=== PATIENT | male | born 1940 | race Caucasian/White ===

== ENCOUNTER 2018-04-24 11:47 | Observation (INO) ==
[2018-04-24] MEDS ORDERED: Ondansetron 4 MG/2 ML VIAL IVP ONE (12:55)
[2018-04-24] MEDS ORDERED: 0.9 % Sodium Chloride 1,000 ML IVC ONE (12:55)
[2018-04-24] MEDS ORDERED: Ketorolac 15 MG/ML VIAL IVP ONE (12:56)
[2018-04-24] MEDS ORDERED: Acetaminophen IV 500 MG/50 ML INFUS..BTL IVPB ONE (13:08)
--- NOTE | 2018-04-24 13:19 | Emergency Department Note ---
Disposition Clinical Impression: Weakness, Fever, Influenza A, Pneumonia Disposition: Admitted As Inpatient Condition: Fair General Adult HPI - General Chief complaint: ED Nausea/Vomiting/Diarrhea Stated complaint: Vomitng,Weakness,Abd pain,Body aches Time Seen by Provider: 04/24/18 12:54 Source: family Limitations: altered mental status - History of Present Illness Pain Scale: 0 - Related Data Allergies Allergy/AdvReac Type Severity Reaction Status Date / Time No Known Allergies Allergy Verified 04/24/18 12:45 Past Medical History - Past Medical History Medical history: Reports: hypertension Psychiatric history: Reports: no psych history - Social History Smoking Status: Former smoker Smokeless Tobacco Status: No Drug use: Reports: none Physical Exam - General Limitations: altered mental status General appearance: lethargic Course Vital Signs Temperature 101.8 F H 04/24/18 12:42 Pulse Rate 92 04/24/18 12:42 Respiratory Rate 16 04/24/18 12:42 Blood Pressure 190/94 04/24/18 12:42 O2 Sat by Pulse Oximetry 93 04/24/18 12:42 Temperature 103.1 F H 04/24/18 19:00 Pulse Rate 96 04/24/18 19:00 Respiratory Rate 22 04/24/18 19:00 Blood Pressure 159/79 04/24/18 19:00 O2 Sat by Pulse Oximetry 90 04/24/18 19:00 Oxygen Delivery Oxygen Delivery Room Air Medical Decision Making - Lab Data Result diagrams: 04/24/18 13:20 04/24/18 13:20 Lab Results 04/24/18 04/24/18 04/24/18 Range/Units 13:20 13:20 13:20 WBC 6.1 (4.3-11.1) K/mcL RBC 4.95 (4.19-5.50) M/mcL Hgb 15.9 (12.9-16.9) g/dL Hct 45.1 (37.5-50.1) % MCV 91.1 (83.0-100.0) fL MCH 32.1 (28.0-33.3) pg MCHC 35.3 (31.6-35.5) g/dL RDW 13.3 (11.5-14.5) % Plt Count 126 L (140-400) K/mcL MPV 9.1 L (9.4-12.4) fL Immature Gran % 0.3 (0-4) % Seg Neutrophils % 83.1 % Lymphocytes % 5.4 % Monocytes % 10.2 % Eosinophils % 0.8 % Basophils % 0.2 % Neutrophils # 5.0 (1.6-8.9) K/mcL Lymphocytes # 0.3 L (0.6-4.6) K/mcL Monocytes # 0.6 (0.0-1.3) K/mcL Eosinophils # 0.1 (0.0-0.6) K/mcL Basophils # 0.0 (0.0-0.2) K/mcL Sodium 136 (136-145) mEq/L Potassium 4.1 (3.5-5.1) mEq/L Chloride 103 (98-107) mEq/L Carbon Dioxide 25 (23-29) mEq/L BUN 16 (8-23) mg/dL Creatinine 1.09 (0.70-1.30) mg/dL Est GFR ( Amer) > 60 (> 60) Est GFR (Non-Af Amer) > 60 (> 60) BUN/Creatinine Ratio 15 (6-26) Glucose 132 H (70-105) mg/dL Calculated Osmolality 285 (280-300) Lactic Acid 1.3 (0.5-2.2) mmol/L Calcium 9.4 (8.6-10.3) mg/dL Total Bilirubin 0.9 (0.3-1.0) mg/dL Direct Bilirubin 0.2 (0.0-0.2) mg/dL Indirect Bilirubin 0.7 (0.0-1.2) mg/dL AST 24 (13-39) Units/L ALT 21 (7-52) Units/L Alkaline Phosphatase 51 (34-104) Units/L Serum Total Protein 7.5 (6.4-8.9) g/dL Albumin 4.5 (3.5-5.7) g/dL Globulin 3.0 (2.4-3.5) g/dL Albumin/Globulin Ratio 1.5 (1.1-2.2) Urine Color (Yellow) Urine Clarity (Clear) Urine pH (5.0-8.0) pH Units Ur Specific [place] (1.010-1.025) Urine Protein (Neg-Trace) mg/dL Urine Glucose (UA) (Normal) mg/dL Urine Ketones (Negative) mg/dL Urine Blood (Negative) Urine Nitrite (Negative) Urine Bilirubin (Negative) Urine Urobilinogen (Normal) mg/dL Ur Leukocyte Esterase (Negative) Urine Microscopic RBC (0-3) per hpf Urine Microscopic WBC (0-3) per hpf Ur Squamous Epith Cells (None-Few) per lpf Urine Bacteria (None-Few) per hpf Hyaline Casts (None-Few) per lpf Ur Culture Indicated? (NO) 04/24/18 Range/Units 14:28 WBC (4.3-11.1) K/mcL RBC (4.19-5.50) M/mcL Hgb (12.9-16.9) g/dL Hct (37.5-50.1) % MCV (83.0-100.0) fL MCH (28.0-33.3) pg MCHC (31.6-35.5) g/dL RDW (11.5-14.5) % Plt Count (140-400) K/mcL MPV (9.4-12.4) fL Immature Gran % (0-4) % Seg Neutrophils % % Lymphocytes % % Monocytes % % Eosinophils % % Basophils % % Neutrophils # (1.6-8.9) K/mcL Lymphocytes # (0.6-4.6) K/mcL Monocytes # (0.0-1.3) K/mcL Eosinophils # (0.0-0.6) K/mcL Basophils # (0.0-0.2) K/mcL Sodium (136-145) mEq/L Potassium (3.5-5.1) mEq/L Chloride (98-107) mEq/L Carbon Dioxide (23-29) mEq/L BUN (8-23) mg/dL Creatinine (0.70-1.30) mg/dL Est GFR ( Amer) (> 60) Est GFR (Non-Af Amer) (> 60) BUN/Creatinine Ratio (6-26) Glucose (70-105) mg/dL Calculated Osmolality (280-300) Lactic Acid (0.5-2.2) mmol/L Calcium (8.6-10.3) mg/dL Total Bilirubin (0.3-1.0) mg/dL Direct Bilirubin (0.0-0.2) mg/dL Indirect Bilirubin (0.0-1.2) mg/dL AST (13-39) Units/L ALT (7-52) Units/L Alkaline Phosphatase (34-104) Units/L Serum Total Protein (6.4-8.9) g/dL Albumin (3.5-5.7) g/dL Globulin (2.4-3.5) g/dL Albumin/Globulin Ratio (1.1-2.2) Urine Color Yellow (Yellow) Urine Clarity Clear (Clear) Urine pH 6.0 (5.0-8.0) pH Units Ur Specific [place] 1.016 (1.010-1.025) Urine Protein 30 H (Neg-Trace) mg/dL Urine Glucose (UA) Normal (Normal) mg/dL Urine Ketones Negative (Negative) mg/dL Urine Blood Trace H (Negative) Urine Nitrite Negative (Negative) Urine Bilirubin Negative (Negative) Urine Urobilinogen Normal (Normal) mg/dL Ur Leukocyte Esterase Negative (Negative) Urine Microscopic RBC 0-3 (0-3) per hpf Urine Microscopic WBC 0-3 (0-3) per hpf Ur Squamous Epith Cells Moderate H (None-Few) per lpf Urine Bacteria None Seen (None-Few) per hpf Hyaline Casts None Seen (None-Few) per lpf Ur Culture Indicated? NO (NO) Attestation Statement - Attestation Attestation: I examined this patient and my medical decision-making was reviewed with the Resident Physician. I agree with the documented findings, disposition and treatment plan as described except to the extent set forth below. Patient to the ED with a chief complaint of weakness. Fever. Cough. states she has been ill since last night. Had a "couple weeks ago but got over that. Today he has been so weak he could not get out of bed. states is usually out riding his tractor and taking care of his horses, but he was too weak to get up this morning. This is very out of character for him. He was also noted to have one episode of vomiting and urinary incontinence in the waiting room. He denies headache. He denies neck pain. states that he is not confused. On examination he is awake and alert. Lungs diminished but clear. Satting 94% on room air. He is febrile 101. Plan. Septic workup. Admission. Patient with infiltrate on chest x-ray. IV antibodies given. Meets Chest X-Ray 04/24/18 14:28 IMPRESSION: Bilateral perihilar and lower lobe airspace opacities suggesting a viral or atypical bronchopneumonia. D/ / Nicko Galindo MD / Nicko Galindo MD Interpreting Provider: Nicko Galindo MD sepsis criteria. Admitted.
--- NOTE | 2018-04-24 13:35 | Emergency Department Note ---
Disposition Clinical Impression: Weakness, Influenza A Fever Qualifiers: Fever type: unspecified Qualified Code(s): R50.9 - Fever, unspecified Pneumonia Qualifiers: Aspiration pneumonia type: unspecified Laterality: unspecified laterality Lung location: unspecified part of lung Disposition: Admitted As Inpatient Condition: Fair Time of Disposition: 15:28 General Adult HPI - General Chief complaint: ED Nausea/Vomiting/Diarrhea Stated complaint: Vomitng,Weakness,Abd pain,Body aches Time Seen by Provider: 04/24/18 12:54 Source: family Limitations: altered mental status Nursing Notes Reviewed: Yes Vital Signs Reviewed: Yes - History of Present Illness HPI Narrative: 77yo male presents from home for evaluation of this and cough. Approximate 2 weeks ago, patient had cold-like symptoms that resolved. 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 Yesterday morning, he began having cough with generalized weakness. Both of these symptoms progressed such that he is now having a productive cough with brown sputum, posttussive emesis 1, generalized weakness such that he is unable to st and under his own power. On ED intake triage vitals, he was incontinent of urine once. He now is warm to the touch. PMH: Peripheral neuropathy. Hypertension on one low-dose antihypertensive. No history of CAD, ACS, diabetes, kidney disease, COPD, CVA or TIA Habits: Remote history of cigarette smoking; quit 30 years ago. No EtOH or illicit. She did receive his seasonal influenza vaccine ROS: Positive: As above Negative: Fever at home, vomiting at home, diarrhea, constipation, abdominal pain, trauma, focal numbness or tingling or weakness, chest pain, palpitations, unusual back pain, dysuria Pain Scale: 0 - Related Data Allergies Allergy/AdvReac Type Severity Reaction Status Date / Time No Known Allergies Allergy Verified 04/24/18 12:45 All systems ED: reviewed and negative except as stated. Review of Systems: As Per HPI Past Medical History - Past Medical History Attestation: Yes The following information was validated with the patient. Source: patient Medical history: Reports: hypertension Psychiatric history: Reports: no psych history - Social History Smoking Status: Former smoker Smokeless Tobacco Status: No Drug use: Reports: none Physical Exam Vital Signs Reviewed General: Patient is somnolent, warm to the touch. He opens eyes to voice, is alert, oriented to self, location, situation. Head: atraumatic, normocephalic Eye: normal appearance, PERRL, EOMI, no scleral icterus, bilateral scleral injection. No conjunctival injection. ENT: mucous membranes moist, normal external ear exam. No some mandibular or cervical lymph adenopathy. Posterior pharynx erythematous without tonsillar swelling, no exudates. Neck: normal inspection, trachea midline, full ROM Chest: normal inspection, symmetric chest rise Respiratory: Good respiratory effort. Bilateral breath sounds are clear without wheezing, crackles, or rhonchi. No stridor. Cardiovascular: Regular rate and rhythm. No clicks, rubs, gallops, or murmors. Normal heart sounds. Abdomen: Bowel sounds present normoactive. Abdomen is soft, nondistended, and nontender. No guarding or rebound. Musculoskeletal: Spontaneously moving all extremities. Skin: warm, dry, intact. Neuro: GCS 15. No focal neurologic deficits observed; sensation to light touch intact and equal bilateral upper and lower extremities, strength 5/5 and equal bilateral upper and lower extremities, no pronator drift. Psych: Patient's affect is appropriate for situation. - General Limitations: altered mental status General appearance: lethargic Course Course Narrative: EKG dated 04/25/19 1913:11 interpreted as sinus rhythm with rate of 96. MT 157, QRS 140, QTC 428. Normal axis. Right bundle branch block. Nonspecific ST-T changes. Compared to previous dated 08/28/2011 showing no acute ischemic changes or comparison. Rapid influenza positive for influenza A. Given patient is a high risk group, Tamiflu 75 mg now. Chest x-ray per renal injury shows a viral versus atypical bronchial pneumonia. Viral more likely given the patient's positive flu however, given he is flu positive will empirically cover for community-acquired pneumonia. Serum hematology is unremarkable. Serum chemistries unremarkable. I discussed the above the patient. He is agreeable to admission for continued evaluation monitoring. I discussed the above with the aberrant hospitalist, Dr. Kaur, who agrees to accept patient for continued evaluation monitoring of his influenza and potential pneumonia as well as his weakness. Chest X-Ray 04/24/18 14:28 IMPRESSION: Bilateral perihilar and lower lobe airspace opacities suggesting a viral or atypical bronchopneumonia. D/ / Nicko Galindo MD / Nicko Galindo MD Interpreting Provider: Nicko Galindo MD Vital Signs Temperature 101.8 F H 04/24/18 12:42 Pulse Rate 92 04/24/18 12:42 Respiratory Rate 16 04/24/18 12:42 Blood Pressure 190/94 04/24/18 12:42 O2 Sat by Pulse Oximetry 93 04/24/18 12:42 Temperature 101.8 F H 04/24/18 13:04 Pulse Rate 92 04/24/18 13:04 Respiratory Rate 16 04/24/18 13:04 Blood Pressure 190/94 04/24/18 13:04 O2 Sat by Pulse Oximetry 93 04/24/18 13:04 Oxygen Delivery Oxygen Delivery Room Air Medical Decision Making - Lab Data Result diagrams: 04/24/18 13:20 04/24/18 13:20 Lab Results 04/24/18 04/24/18 04/24/18 Range/Units 13:20 13:20 13:20 WBC 6.1 (4.3-11.1) K/mcL RBC 4.95 (4.19-5.50) M/mcL Hgb 15.9 (12.9-16.9) g/dL Hct 45.1 (37.5-50.1) % MCV 91.1 (83.0-100.0) fL MCH 32.1 (28.0-33.3) pg MCHC 35.3 (31.6-35.5) g/dL RDW 13.3 (11.5-14.5) % Plt Count 126 L (140-400) K/mcL MPV 9.1 L (9.4-12.4) fL Immature Gran % 0.3 (0-4) % Seg Neutrophils % 83.1 % Lymphocytes % 5.4 % Monocytes % 10.2 % Eosinophils % 0.8 % Basophils % 0.2 % Neutrophils # 5.0 (1.6-8.9) K/mcL Lymphocytes # 0.3 L (0.6-4.6) K/mcL Monocytes # 0.6 (0.0-1.3) K/mcL Eosinophils # 0.1 (0.0-0.6) K/mcL Basophils # 0.0 (0.0-0.2) K/mcL Sodium 136 (136-145) mEq/L Potassium 4.1 (3.5-5.1) mEq/L Chloride 103 (98-107) mEq/L Carbon Dioxide 25 (23-29) mEq/L BUN 16 (8-23) mg/dL Creatinine 1.09 (0.70-1.30) mg/dL Est GFR ( Amer) > 60 (> 60) Est GFR (Non-Af Amer) > 60 (> 60) BUN/Creatinine Ratio 15 (6-26) Glucose 132 H (70-105) mg/dL Calculated Osmolality 285 (280-300) Lactic Acid 1.3 (0.5-2.2) mmol/L Calcium 9.4 (8.6-10.3) mg/dL Total Bilirubin 0.9 (0.3-1.0) mg/dL Direct Bilirubin 0.2 (0.0-0.2) mg/dL Indirect Bilirubin 0.7 (0.0-1.2) mg/dL AST 24 (13-39) Units/L ALT 21 (7-52) Units/L Alkaline Phosphatase 51 (34-104) Units/L Serum Total Protein 7.5 (6.4-8.9) g/dL Albumin 4.5 (3.5-5.7) g/dL Globulin 3.0 (2.4-3.5) g/dL Albumin/Globulin Ratio 1.5 (1.1-2.2)
[2018-04-24 13:49] LABS: Basophils % 0.2 %; Eosinophils # 0.1 K/mcL (0.0-0.6); Eosinophils % 0.8 %; Hematocrit 45.1 % (37.5-50.1); Hemoglobin 15.9 g/dL (12.9-16.9); Immature Granulocytes % 0.3 % (0-4); Lymphocytes # 0.3 K/mcL (0.6-4.6); Lymphocytes % 5.4 %; Mean Corpuscular HGB Conc 35.3 g/dL (31.6-35.5); Mean Corpuscular Hemoglobin 32.1 pg (28.0-33.3); Mean Corpuscular Volume 91.1 fL (83.0-100.0); Mean Platelet Volume 9.1 fL (9.4-12.4); Monocytes # 0.6 K/mcL (0.0-1.3); Monocytes % 10.2 %; Platelet Count 126 K/mcL (140-400); Red Blood Count 4.95 M/mcL (4.19-5.50); Red Cell Distribution Width 13.3 % (11.5-14.5); Segmented Neutrophils % 83.1 %
[2018-04-24 13:55] LABS: Alanine Aminotransferase 21 Units/L (7-52); Albumin 4.5 g/dL (3.5-5.7); Albumin/Globulin Ratio 1.5 (1.1-2.2); Alkaline Phosphatase 51 Units/L (34-104); Aspartate Amino Transferase 24 Units/L (13-39); BUN/Creatinine Ratio 15 (6-26); Bilirubin,Direct 0.2 mg/dL (0.0-0.2); Bilirubin,Indirect 0.7 mg/dL (0.0-1.2); Bilirubin,Total 0.9 mg/dL (0.3-1.0); Blood Urea Nitrogen 16 mg/dL (8-23); Calcium 9.4 mg/dL (8.6-10.3); Carbon Dioxide 25 mEq/L (23-29); Chloride 103 mEq/L (98-107); Glucose 132 mg/dL (70-105); Osmolality,Calculated 285 (280-300); Potassium 4.1 mEq/L (3.5-5.1); Sodium 136 mEq/L (136-145); Total Protein 7.5 g/dL (6.4-8.9); eGFR For Non-African Americans > 60 (> 60)
[2018-04-24 14:53] LABS: Bilirubin,Urine Negative (Negative); Blood,Urine Trace (Negative); Clarity,Urine Clear (Clear); Color,Urine Yellow (Yellow); Glucose,Urine (UA) Normal (Normal); Ketones,Urine Negative (Negative); Leukocyte Esterase,Urine Negative (Negative); Nitrite,Urine Negative (Negative); Protein,Urine 30 mg/dL (Neg-Trace); Specific Gravity,Urine 1.016 (1.010-1.025); Urobilinogen,Urine Normal (Normal)
[2018-04-24 14:58] LABS: Bacteria,Urine None Seen per hpf (None-Few); Hyaline Casts,Urine None Seen per lpf (None-Few); RBC,Urine 0-3 per hpf (0-3); Squamous Epithelial Cell,Urine Moderate per lpf (None-Few); WBC,Urine 0-3 per hpf (0-3)
[2018-04-24] MEDS ORDERED: Azithromycin 500 MG in D5% in Water 250 ML IVPB ONE (15:09)
[2018-04-24] MEDS ORDERED: cefTRIAXone 1,000 MG in Water for inj. (sterile) 20 ML 10 ML IVP ONE (15:09)
[2018-04-24] MEDS ORDERED: Naloxone 0.4 MG/ML INJ IVP PRN (18:41)
[2018-04-24] MEDS ORDERED: 0.9 % Sodium Chloride 1,000 ML IVC SCH (19:00)
[2018-04-24] MEDS ORDERED: Ibuprofen 600 MG TABLET PO ONE (19:34)
[2018-04-24] MEDS ORDERED: Acetaminophen 325 MG TABLET PO ONE (19:34)
[2018-04-24] MEDS ORDERED: Ipratropium/Albuterol Neb 3 ML IH SCH (22:00)
[2018-04-24] MEDS ORDERED: Ipratropium/Albuterol Neb 3 ML IH PRN (22:12)
--- NOTE | 2018-04-24 22:16 | Event Note ---
Date of Encounter: 04/24/18 Time of Encounter: 19:32 Alerted by patient's nurse BOLIVAR Tucker that patient's current temperature was 103.1F w/no antipyretics ordered. Pt. admitted for influenza and PNA. One time dose of 600 mg ibuprofen and one time dose of Tylenol 650 mg ordered. Nurse instructed to give ibuprofen first then the Tylenol for second dose. Nurse reported that patient was populating is a sepsis risk due to HR 96 and current temperature of 103.1. Ibuprofen was given. Lactic acid 1.3. Nurse instructed to order telemetry for the patient due to sepsis. Nurse also instructed to continue monitoring this pt. closely and keep me informed regularly d/t high risk sepsis status.
--- NOTE | 2018-04-24 23:29 | Electrocardiograph Report ---
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
--- NOTE | 2018-04-25 05:46 | Internal Med History&Physical ---
Date of Encounter: 04/24/18 Time of Encounter: 19:00 Internal Medicine - H&P: HPI Chief complaint: Severe cough Admitted From: Home Plans for Post Hospital Care: Home History of present illness: The patient is a 77-year-old male. He developed malaise and progressing coughing but not wheezing yesterday afternoon. Associated with fever and chills. The cough (nonproductive) was bothering him all the night; did not get any sleep. Came to emergency room for evaluation and treatment. He is tested positive for influenza A. PAST MEDICAL HX: Treated for hypertension. Has been diagnosed with peripheral neuropathy (mostly feet) and gout. PAST FAMILY HX: See below PAST SOCIAL HX: He used to smoke in the past. There is no history of alcohol or illicit drug use. REVIEW OF SYSTEMS: All 14 organ systems were reviewed by me with the patient. Positive and pertinent negative findings are listed above. The rest of organ systems is negative. PHYSICAL EXAM: Skin: Free of rash and discoloration. Eyes: Sclera is white. There is no discharge from eyes. ENMT: Oral/pharyngeal mucosa is normal in appearance. There is no discharge from nose or ears. Respiratory: Normal breath sounds with no crackles and wheezes bilaterally. CV: Heart is regular with no gallop or murmur. GI: Abdomen is flat and soft with no palpable mass or visceromegaly. : There is no tenderness in patient's flanks bilaterally. Neuro exam: He has good strength in upper and lower extremities. He has normal eye movements. Psychiatric: He has normal affect. His thought process is appropriate to the situation. ADDITIONAL DATA: CBC shows hemoglobin of 15.9 with a WBC of 6.1 thousand and platelet count of 126,000. BMP is normal. Random glucose is 132. UA shows normal findings. Chest x-ray shows bilateral perihilar and lower lobe airspace opacities suggesting viral or atypical bronchopneumonia. EKG shows normal sinus rhythm with right bundle branch block. The patient is tested positive for influenza A. A/P: Influenza A/possible viral pneumonia. Tamiflu has been started. He is on IV Zithromax/IV Rocephin. I put him on scheduled Tessalon. He will get nebulizer treatments with DuoNeb every 6 hours. Hypertension. We are trying to get info about his home medications. Currently, he does not need any antihypertensives. His other problems are mentioned in past medical history. Past Med Surg Social Fam HX - Past Medical History Medical history: hypertension Additional medical history: neuropathy, gout Psychiatric history: no psych history - Social History Smoking Status: Former smoker Smokeless Tobacco Status: No Drug use: none - Family History Mother History Unknown: Yes Living Status: Cause of : car accident Father History Unknown: Yes Living Status: Cause of : alcoholic complications Internal Medicine - H&P: Meds Allergy/AdvReac Type Severity Reaction Status Date / Time No Known Allergies Allergy Verified 04/24/18 12:45 - Constitutional Vitals: Temp Pulse Resp BP Pulse Ox 98.2 F 67 16 120/7 93 04/25/18 04:02 04/25/18 04:02 04/25/18 04:02 04/25/18 04:02 04/25/18 04:02 General appearance: Present: A&O X 3, pleasant, answers questions appropriately Exam: xx Internal Med - H&P Results - Labs CBC & Chem 7: 04/24/18 13:20 04/24/18 13:20 Labs: Short CBC 04/24/18 Range/Units 13:20 WBC 6.1 (4.3-11.1) K/mcL Hgb 15.9 (12.9-16.9) g/dL Hct 45.1 (37.5-50.1) % Plt Count 126 L (140-400) K/mcL Neutrophils # 5.0 (1.6-8.9) K/mcL BMP 04/24/18 13:20 Sodium 136 Potassium 4.1 Chloride 103 Carbon Dioxide 25 BUN 16 Creatinine 1.09 Glucose 132 H Calcium 9.4 Liver Function 04/24/18 Range/Units 13:20 Total Bilirubin 0.9 (0.3-1.0) mg/dL Direct Bilirubin 0.2 (0.0-0.2) mg/dL AST 24 (13-39) Units/L ALT 21 (7-52) Units/L Alkaline Phosphatase 51 (34-104) Units/L Albumin 4.5 (3.5-5.7) g/dL Urine 04/24/18 Range/Units 14:28 Urine Color Yellow (Yellow) Urine Clarity Clear (Clear) Urine pH 6.0 (5.0-8.0) pH Units Ur Specific [place] 1.016 (1.010-1.025) Urine Protein 30 H (Neg-Trace) mg/dL Urine Glucose (UA) Normal (Normal) mg/dL - Impressions ITS Impressions Chest X-Ray 04/24/18 14:28 IMPRESSION: Bilateral perihilar and lower lobe airspace opacities suggesting a viral or atypical bronchopneumonia. D/ / Nicko Galindo MD / Nicko Galindo MD Interpreting Provider: Nicko Galindo MD - Assessment and Plan (1) Influenza A Current Visit: Yes Status: Acute (2) Viral pneumonia Current Visit: Yes Status: Acute (3) HTN (hypertension) Current Visit: Yes Status: Acute Qualifiers: Hypertension type: essential hypertension Qualified Code(s): I10 - Essential (primary) hypertension - Time Spent With Patient Total time spent is greater than 50% in coordination of care (as documented) at patient's floor/unit and/or counseling patient: 25 - 35 minutes
[2018-04-25] MEDS ORDERED: Acetaminophen 325 MG TABLET PO PRN (08:26)
[2018-04-25] MEDS: Benzonatate 100 MG CAPSULE PO PRN ×2 (08:38→14:14)
[2018-04-25] MEDS: Ipratropium/Albuterol Neb 3 ML IH SCH ×3 (10:23→22:38)
[2018-04-25] MEDS: Gabapentin 400 MG CAPSULE PO SCH ×3 (14:05→21:25)
[2018-04-25] MEDS: cefTRIAXone 1,000 MG in Water for inj. (sterile) 20 ML 10 ML IVP SCH (14:05)
[2018-04-25] MEDS: Aspirin Enteric Coated 81 MG Tablet PO SCH (14:05)
[2018-04-25] MEDS: Azithromycin 500 MG in D5% in Water 250 ML IVPB SCH (14:14)
--- NOTE | 2018-04-25 14:28 | Internal Med Progress Note ---
Hospitalist Progress Note - Encounter Date of Encounter: 04/25/18 Time of Encounter: 12:10 - Subjective Interval History: Mr. Joseph is a 77 y/o M with known PMH of hypertension, gout and peripheral neuropathy pt presented to ER with generalized weakness, cough with sputum production, fever and chills. His chest x-ray showed bilateral lower lobe opacities. His Influenza A came back as positive. He was admitted in the hospital and started him on empirical antibiotic Rocephin and azithromycin as well as Tamiflu. He still having fever spikes - T max - 103.1. However patient stated he is feeling little better today. Still having cough with expectoration. Denied any chest pain. - Exam Vitals: Temp Pulse Resp BP Pulse Ox 100.1 F H 77 15 137/76 91 04/25/18 11:16 04/25/18 11:16 04/25/18 11:16 04/25/18 11:16 04/25/18 11:16 Exam: Gen: Alert, awake, Oriented to time,place and person Chest: Diminished breath sounds B/L, mild wheezing, No crackles, No rales Heart: S1S2+ RRR No murmurs Abd: Soft, NT, BS +, No organomegaly Ext: No edema, pulses are palpable, No calf tenderness Neuro : Benign findings Skin: No rash. - Assessment and Plan (1) Sepsis Current Visit: Yes Status: Acute Assessment and Plan: He does meet sepsis criteria with sinus tachycardia HR @ 101, Fever with T max 103, Source of inf as PNA / Influenza A positive Improving cont IV hydration on empirical abx Rocephin + Azithromycin (2) Pneumonia Current Visit: Yes Status: Acute Assessment and Plan: Mostly bacterial PNA Concerning for possible supra bacterial inf Sputum cx ordered cont empirical antibiotic Rocephin + Azithromycin continue scheduled bronchodilator therapy (3) Influenza A Current Visit: Yes Status: Acute Assessment and Plan: Continue Tamiflu (4) HTN (hypertension) Current Visit: Yes Status: Acute Assessment and Plan: Stable blood pressure resumed all home medications (5) Peripheral neuropathy Current Visit: Yes Status: Chronic Assessment and Plan: Resumed home medications - Time Spent with Patient Total time spent is greater than 50% in coordination of care (as documented) at patient's floor/unit and/or counseling patient: Internal Medicine: Result - Labs CBC & Chem 7: 04/24/18 13:20 04/24/18 13:20 Labs: Urine 04/24/18 Range/Units 14:28 Urine Color Yellow (Yellow) Urine Clarity Clear (Clear) Urine pH 6.0 (5.0-8.0) pH Units Ur Specific [place] 1.016 (1.010-1.025) Urine Protein 30 H (Neg-Trace) mg/dL Urine Glucose (UA) Normal (Normal) mg/dL - Impressions Impressions Chest X-Ray 04/24/18 14:28 IMPRESSION: Bilateral perihilar and lower lobe airspace opacities suggesting a viral or atypical bronchopneumonia. D/ / Nicko Galindo MD / Nicko Galindo MD Interpreting Provider: Nicko Galindo MD Consult Discharge Plan - Plan Referrals: Inés Nunez MD [Primary Care Provider] - 05/05/18 1:00 pm (2) Pneumonia Qualifiers: Aspiration pneumonia type: unspecified Laterality: unspecified laterality Lung location: unspecified part of lung (4) HTN (hypertension) Qualifiers: Hypertension type: essential hypertension Qualified Code(s): I10 - Essential (primary) hypertension
[2018-04-25 15:56] LABS: Adenovirus Not Detected (Not Detect); Bordetella Pertussis Not Detected (Not Detect); Chlamydophila pneumoniae Not Detected (Not Detect); Coronavirus 229E Not Detected (Not Detect); Coronavirus HKU1 Not Detected (Not Detect); Coronavirus NL63 Not Detected (Not Detect); Coronavirus OC43 Not Detected (Not Detect); Human Metapneumovirus Not Detected (Not Detect); Human Rhinovirus/Enterovirus Not Detected (Not Detect); Influenza A Subtype 2009 H1 Not Detected (Not Detect); Influenza A Untypeable Not Detected (Not Detect); Influenza B Not Detected (Not Detect); Mycoplasma pneumoniae Not Detected (Not Detect); Parainfluenza Virus 1 Not Detected (Not Detect); Parainfluenza Virus 2 Not Detected (Not Detect); Parainfluenza Virus 3 Not Detected (Not Detect); Parainfluenza Virus 4 Not Detected (Not Detect); Respiratory Syncytial Virus Not Detected (Not Detect)
[2018-04-26] MEDS: Ipratropium/Albuterol Neb 3 ML IH SCH ×4 (04:07→21:33)
[2018-04-26 06:12] LABS: Basophils % 0.1 %; Hematocrit 44.8 % (37.5-50.1); Hemoglobin 15.3 g/dL (12.9-16.9); Immature Granulocytes % 0.3 % (0-4); Lymphocytes % 12.7 %; Mean Corpuscular HGB Conc 34.2 g/dL (31.6-35.5); Mean Corpuscular Hemoglobin 31.6 pg (28.0-33.3); Mean Corpuscular Volume 92.6 fL (83.0-100.0); Mean Platelet Volume 9.4 fL (9.4-12.4); Monocytes # 0.8 K/mcL (0.0-1.3); Monocytes % 10.4 %; Neutrophils # 5.8 K/mcL (1.6-8.9); Platelet Count 120 K/mcL (140-400); Red Blood Count 4.84 M/mcL (4.19-5.50); Red Cell Distribution Width 13.7 % (11.5-14.5); Segmented Neutrophils % 76.5 %
[2018-04-26 06:29] LABS: BUN/Creatinine Ratio 21 (6-26); Blood Urea Nitrogen 19 mg/dL (8-23); Carbon Dioxide 25 mEq/L (23-29); Chloride 103 mEq/L (98-107); Glucose 103 mg/dL (70-105); Osmolality,Calculated 287 (280-300); Potassium 3.8 mEq/L (3.5-5.1); Sodium 137 mEq/L (136-145); eGFR For Non-African Americans > 60 (> 60)
[2018-04-26] MEDS: Gabapentin 400 MG CAPSULE PO SCH ×4 (09:01→22:33)
[2018-04-26] MEDS: Aspirin Enteric Coated 81 MG Tablet PO SCH (09:02)
[2018-04-26] MEDS: cefTRIAXone 1,000 MG in Water for inj. (sterile) 20 ML 10 ML IVP SCH (16:16)
[2018-04-26] MEDS: Azithromycin 500 MG in D5% in Water 250 ML IVPB SCH (17:11)
[2018-04-27] MEDS: Ipratropium/Albuterol Neb 3 ML IH SCH ×2 (04:17→09:59)
--- NOTE | 2018-04-27 05:54 | Internal Med Progress Note ---
Hospitalist Progress Note - Encounter Date of Encounter: 04/26/18 Time of Encounter: 19:00 - Subjective Interval History: SUBJECTIVE: The patient feels better. Denies resting dyspnea. His cough has significantly decreased in intensity. It is mild. Without wheezing. Denies abdominal pain, nausea and vomiting. He has normal urination. OBJECTIVE: Skin: Free of rash and discoloration. ENMT: Oral/pharyngeal mucosa is normal in appearance. Eyes: Sclera is white. There is no discharge from eyes. Respiratory: Normal breath sounds; no crackles or wheezes. CV: Heart is regular; no gallop or murmur. GI: Abdomen is soft and not tender. There is no palpable mass or visceromegaly. Neuro: There is no focal deficits. ADDITIONAL DATA: CBC and BMP are normal. I requested chest x-ray. ASSESSMENT AND PLAN: Influenza A/viral pneumonia. He is on IV Rocephin and oral Tamiflu. He gets scheduled nebulizer treatments with DuoNeb. He gets up when necessary Tessalon. I will repeat his chest x-ray. His sepsis basically resolved. Hypertension. Under control. Not taking any antihypertensives at this time. Peripheral neuropathy. Cause unknown. To continue gabapentin. DISPOSITION: I anticipate his discharge tomorrow. - Exam Vitals: Temp Pulse Resp BP Pulse Ox 98.9 F 76 16 138/74 94 04/26/18 23:39 04/26/18 23:39 04/27/18 04:17 04/26/18 23:39 04/27/18 04:17 Exam: xx - Assessment and Plan (1) Influenza A Current Visit: Yes Status: Acute (2) Pneumonia Current Visit: Yes Status: Acute (3) HTN (hypertension) Current Visit: Yes Status: Acute (4) Sepsis Current Visit: Yes Status: Acute (5) Peripheral neuropathy Current Visit: Yes Status: Chronic - Time Spent with Patient Total time spent is greater than 50% in coordination of care (as documented) at patient's floor/unit and/or counseling patient: 25 - 35 minutes Plan of Care Discussed with: patient Internal Medicine: Result - Labs CBC & Chem 7: 04/26/18 05:22 04/26/18 05:22 Labs: Short CBC 04/26/18 Range/Units 05:22 WBC 7.6 (4.3-11.1) K/mcL Hgb 15.3 (12.9-16.9) g/dL Hct 44.8 (37.5-50.1) % Plt Count 120 L (140-400) K/mcL Neutrophils # 5.8 (1.6-8.9) K/mcL BMP 04/26/18 05:22 Sodium 137 Potassium 3.8 Chloride 103 Carbon Dioxide 25 BUN 19 Creatinine 0.90 Glucose 103 Calcium 9.0 - Impressions Impressions Chest X-Ray 04/26/18 17:34 IMPRESSION: Persistent opacification at the lung bases. Some increased linear atelectatic changes are noted. D/ / Chad Montano MD / Chad Montano MD Interpreting Provider: Chad Montano MD Consult Discharge Plan - Plan Referrals: Inés Nunez MD [Primary Care Provider] - 05/05/18 1:00 pm (2) Pneumonia Qualifiers: Aspiration pneumonia type: unspecified Laterality: unspecified laterality Lung location: unspecified part of lung (3) HTN (hypertension) Qualifiers: Hypertension type: essential hypertension Qualified Code(s): I10 - Essential (primary) hypertension
[2018-04-27] MEDS: Aspirin Enteric Coated 81 MG Tablet PO SCH (08:26)
[2018-04-27] MEDS: Gabapentin 400 MG CAPSULE PO SCH (08:26)
[2018-04-27 08:38] VITALS: BP 153/92
--- NOTE | 2018-04-27 10:06 | Discharge Summary ---
Orders not resulted at time of discharge: Pending orders 04/24/18 13:38 Culture,Blood [BC] Stat 04/25/18 13:03 Culture,Sputum with Gram Stain [RM] Routine Date of Encounter: 04/27/18 Time of Encounter: 10:04 - Discharge Diagnosis (1) Influenza A Priority: Primary Status: Acute (2) Viral pneumonia Priority: Primary Status: Acute (3) HTN (hypertension) Priority: Secondary Status: Chronic Qualifiers: Hypertension type: essential hypertension Qualified Code(s): I10 - Essential (primary) hypertension (4) Sepsis Priority: Primary Status: Resolved Qualifiers: Sepsis type: sepsis due to unspecified organism Qualified Code(s): A41.9 - Sepsis, unspecified organism (5) Peripheral neuropathy Priority: Secondary Status: Chronic Qualifiers: Peripheral neuropathy type: polyneuropathy, unspecified Qualified Code(s): G62.9 - Polyneuropathy, unspecified Hospital course: HOSPITAL COURSE: The patient is a 77-year-old male who presented to the emergency room with fever and chills, generalized weakness and cough with sputum productiondeveloping in the last few days preceding this admission. He was tested positive for influenza A. Chest x-ray showed bilateral lower lobe opacities. We made diagnosis of influenza A infection/possible viral pneumonia. We started him on IV Rocephin and IV Zithromax. Together with oral Tamiflu. The patient was septic at admission. He got significantly better by the end of this hospitalization. He got stronger. His fever subsided. CONDITION AT DISCHARGE: He has good. Denies chest pain. His cough is mild; without wheezing. Denies abdominal pain, nausea and vomiting. Skin: Free of rash and discoloration. Respiratory: Normal breath sounds with no crackles and wheezes bilaterally. CV: Heart is regular with no gallop or murmur. GI: Abdomen is flat and soft with no palpable mass or visceromegaly. Neuro exam: There is no focal deficits. Normal speech, swallowing and gait. SEE DISCHARGE ORDERS/MEDICATIONS He will complete 5 day treatment with Zithromax and 5 day treatment with Tamiflu at home. Discharge discussed with: patient, family, nurse - Time Spent with Patient Total time spent providing and/or coordinating discharge services: Time spent: Greater than 30 minutes (35 minutes...) - Discharge Medications Prescriptions: New Benzonatate [Tessalon] 200 mg PO Q6H PRN #12 capsule PRN Reason: Cough Azithromycin [Zithromax] 250 mg PO Q24H #3 tablet Continue Aspirin Enteric Coated [Aspirin EC] 81 mg PO DAILY Sildenafil Citrate [Viagra] 100 mg PO PRN PRN PRN Reason: Erectile Dysfunction Allopurinol [Zyloprim 100 MG] 100 mg PO QPM Gabapentin 800 mg PO QID Home Medications: Allopurinol [Zyloprim 100 MG] 100 mg PO QPM 04/25/18 [History] Aspirin Enteric Coated [Aspirin EC] 81 mg PO DAILY 04/25/18 [History] Gabapentin 800 mg PO QID 04/25/18 [History] Sildenafil Citrate [Viagra] 100 mg PO PRN PRN 04/25/18 [History] Azithromycin [Zithromax] 250 mg PO Q24H #3 tablet 04/27/18 [Rx] Benzonatate [Tessalon] 200 mg PO Q6H PRN #12 capsule 04/27/18 [Rx] Allergies/Adverse Reactions: Allergy/AdvReac Type Severity Reaction Status Date / Time No Known Allergies Allergy Verified 04/24/18 12:45 Date of admission: 04/24/18 15:51 Primary care physician: Inés Nunez MD Consults: 04/25/18 08:13 Consult to Nurse Navigator [CONS] Routine Comment: PNEUMONIA Discharging clinician: Zach Nayak Anticipated date of discharge: 04/27/18 - Constitutional Vitals: Temp Pulse Resp BP Pulse Ox 98.2 F 72 18 153/92 93 04/27/18 08:35 04/27/18 08:35 04/27/18 10:01 04/27/18 08:35 04/27/18 10:01 General appearance: Present: A&O X 3, pleasant, answers questions appropriately Exam: xx - Patient Status Disposition: Home, Self-Care Condition: Fair Functional capacity at discharge: independent ambulation Overall status at discharge: patient is progressing back to baseline - Discharge Instructions Instructions: Benzonatate (By mouth), Azithromycin (By mouth), Oseltamivir (By mouth), Influenza, Tooling Engineer (GEN) Follow Up With: Inés Nunez MD [Primary Care Provider] - 05/05/18 1:00 pm - Diet and Activity Activity: increase activity as tolerated Diet: advance to your usual diet - VTE Reasons for not Prescribing Prophylaxis: Treatment not Indicated - Low risk for VTE Deep Vein Thrombosis/Pulmonary Embolism Present on Admission: No
== END 2018-04-27 12:30 | disposition home or self-care (01) ==
LOC: EMEROOARM 11:47 → 3BNU 11:47 → SUATTDRO 15:51 → 3BNU 16:15
PROVIDERS: ADMIT Internal Medicine; ATTEND Internal Medicine